=== PATIENT | female | born 1955 | race African-American/Black ===

== ENCOUNTER 2023-06-23 13:52 | Emergency (ER) | payer OTHER ==
[~2023-06-23] VITALS: Ht 170.2 cm; Wt 134.1 kg
[2023-06-23 14:25] VITALS: BP 186/100; PULSE 75; RESP 20; TEMP 97.5; O2SAT 98
== END 2023-06-23 16:06 | disposition home or self-care (01) ==
LOC: ER 13:53
DX: S40.021A Contusion of right upper arm, initial encounter (principal); S29.011A Strain of muscle and tendon of front wall of thorax, initial encounter; V49.88XA Car occupant (driver) (passenger) injured in other specified transport accidents, initial encounter; Y93.89 Activity, other specified; Y92.89 Other specified places as the place of occurrence of the external cause; Y99.8 Other external cause status
CPT/HCPCS: 71045; 73110; 99284

== ENCOUNTER 2024-08-19 12:15 | Inpatient (IN) | payer OTHER, MEDICARE ==
[~2024-08-19] VITALS: Ht 170.2 cm; Wt 104.5 kg
[2024-08-19 12:42] LABS: BASOPHILS # (AUTO) 0.1 X10'3 (0-0.2); BASOPHILS % (AUTO) 1.2 % (0-1); EOSINOPHILS # (AUTO) 0.1 X10'3 (0-0.9); HEMATOCRIT 40.4 % (35.0-45.0); HEMOGLOBIN 13.2 g/dl (12.0-16.0); LYMPHOCYTES # (AUTO) 1.8 X10'3 (1.1-4.8); LYMPHOCYTES % (AUTO) 34.1 % (21-51); MEAN CORPUSCULAR HEMOGLOBIN 26.5 PG (27.0-31.0); MEAN CORPUSCULAR HGB CONC 32.8 g/dL (33.0-36.5); MEAN CORPUSCULAR VOLUME 80.7 FL (78-98); MEAN PLATELET VOLUME 9.8 FL (7.4-10.4); MONOCYTES # (AUTO) 0.5 X10'3 (0-0.9); MONOCYTES % (AUTO) 9.7 % (2-12); NEUTROPHILS # (AUTO) 2.8 X10'3 (1.8-7.7); PLATELET COUNT 133 X10'3 (140-440); RED CELL DISTRIBUTION WIDTH 14.6 % (11.5-14.5); WHITE BLOOD COUNT 5.3 X10'3 (4.5-11.0)
[2024-08-19 13:06] LABS: ALANINE AMINOTRANSFERASE 94 U/L (12-78); ALBUMIN/GLOBULIN RATIO 0.9 (1.1-1.5); ALKALINE PHOSPHATASE 61 IU/L (46-116); ANION GAP 7 (8-16); ASPARTATE AMINO TRANSFERASE 51 U/L (10-37); BILIRUBIN,TOTAL 1.5 MG/DL (0.1-1.0); BLOOD UREA NITROGEN 7 MG/DL (7-18); BUN/CREATININE RATIO 7.6 (10.0-20.0); CALCIUM 8.9 MG/DL (8.5-10.1); CHLORIDE 103 MMOL/L (99-107); CREATININE 0.92 MG/DL (0.40-0.90); GLUCOSE 126 MG/DL (70-104); PRO BRAIN NATRIURETIC PEPTIDE < 30 PG/ML (0-125); SODIUM 139 MMOL/L (135-145); TOTAL CARBON DIOXIDE 28.8 MMOL/L (24-32); TOTAL PROTEIN 6.5 G/DL (6.4-8.2); eCRCL 58 ML/MIN; eGFR 74 ML/MIN
[2024-08-19 13:12] LABS: POTASSIUM 2.3 MMOL/L (3.5-5.1)
[2024-08-19] MEDS: proCHLORperazine 10 MG/2 ml inj IV STA (13:42)
[2024-08-19] MEDS ORDERED: magnesium sulf-water 4G/100mL 100 ML IV PRN (13:55)
[2024-08-19] MEDS ORDERED: potassium Cl 20 mEq SR tablet PO PRN (13:55)
[2024-08-19] MEDS ORDERED: ondansetron/PF 4mg/2ml inj IV PRN (13:55)
[2024-08-19] MEDS ORDERED: HYDROcodone/acetaminophen 5mg/325mg tablet PO PRN (13:55)
[2024-08-19] MEDS ORDERED: acetaminophen 325mg tablet PO PRN ×2 (13:55)
[2024-08-19] MEDS ORDERED: magnesium Cl slow-release 64mg tablet PO PRN (13:55)
[2024-08-19] MEDS ORDERED: HYDROcodone/acetaminophen 10/325mg tab PO PRN (13:55)
[2024-08-19] MEDS ORDERED: magnesium sulf-water 2g/50mL 50 ML IV PRN (13:55)
[2024-08-19] MEDS ORDERED: morphine 2 MG/ML inj. syringe IV PRN ×2 (13:55)
[2024-08-19 14:05] LABS: ETHANOL < 10 MG/DL (<10)
[2024-08-19] MEDS: normal saline 1000ml 1,000 ML IV SCH (14:19)
[2024-08-19] MEDS: normal saline 1000ml 1,000 ML IV STA (14:19)
[2024-08-19] MEDS: potassium Cl 40MEQ/1/2NS 520ml 520 ML IV PRN (14:24)
[2024-08-19 15:15] VITALS: BP 108/71; PULSE 78; RESP 16; TEMP 98.2; O2SAT 94
[2024-08-19 16:00] VITALS: RESP 18; O2SAT 97
[2024-08-19] MEDS ORDERED: nitroGLYCERIN 0.4mg SUBLingual tab SL PRN (16:05)
[2024-08-19 16:20] LABS: THYROID STIMULATING HORMONE 0.97 ulU/ml (0.34-4.50)
[2024-08-19] MEDS: pantoprazole 40mg Tablet.DR PO SCH (17:14)
[2024-08-19] MEDS ORDERED: HYDR25TA4 PO (17:33)
[2024-08-19] MEDS ORDERED: CARV25TA56 PO (17:33)
[2024-08-19] MEDS ORDERED: ATOR-2 PO (17:33)
[2024-08-19 18:00] VITALS: BP 110/65; PULSE 73; RESP 14; TEMP 97.6; O2SAT 94
[2024-08-19] MEDS: heparin, porcine 5000 units/ml vial SQ SCH (19:38)
[2024-08-19 20:00] VITALS: RESP 18; O2SAT 95
[2024-08-19 22:00] VITALS: BP 120/63; PULSE 69; RESP 18; TEMP 97.8; O2SAT 95
[2024-08-20] VITALS (8 sets, daily range): BP systolic 110–143; BP diastolic 65–75; PULSE 70–82; RESP 16–19; TEMP 97.2–98; O2SAT 96–100
[2024-08-20 09:34] LABS: BASOPHILS % (AUTO) 0.9 % (0-1); EOSINOPHILS # (AUTO) 0.2 X10'3 (0-0.9); EOSINOPHILS % (AUTO) 3.9 % (0-6); HEMATOCRIT 38.5 % (35.0-45.0); HEMOGLOBIN 12.7 g/dl (12.0-16.0); LYMPHOCYTES # (AUTO) 1.8 X10'3 (1.1-4.8); LYMPHOCYTES % (AUTO) 34.3 % (21-51); MEAN CORPUSCULAR HEMOGLOBIN 26.6 PG (27.0-31.0); MEAN CORPUSCULAR VOLUME 80.8 FL (78-98); MEAN PLATELET VOLUME 9.4 FL (7.4-10.4); MONOCYTES # (AUTO) 0.5 X10'3 (0-0.9); MONOCYTES % (AUTO) 9.4 % (2-12); NEUTROPHILS # (AUTO) 2.8 X10'3 (1.8-7.7); NEUTROPHILS % (AUTO) 51.5 % (42-75); PLATELET COUNT 110 X10'3 (140-440); RED BLOOD COUNT 4.76 X10'6 (4.20-5.60); RED CELL DISTRIBUTION WIDTH 14.9 % (11.5-14.5); WHITE BLOOD COUNT 5.3 X10'3 (4.5-11.0)
[2024-08-20 09:50] LABS: ALANINE AMINOTRANSFERASE 107 U/L (12-78); ALBUMIN 2.9 G/DL (3.4-5.0); ALBUMIN/GLOBULIN RATIO 0.9 (1.1-1.5); ALKALINE PHOSPHATASE 57 IU/L (46-116); ANION GAP 6 (8-16); ASPARTATE AMINO TRANSFERASE 58 U/L (10-37); BILIRUBIN,TOTAL 1.6 MG/DL (0.1-1.0); BLOOD UREA NITROGEN 5 MG/DL (7-18); CALCIUM 8.5 MG/DL (8.5-10.1); CHLORIDE 107 MMOL/L (99-107); CREATININE 0.83 MG/DL (0.40-0.90); GLUCOSE 81 MG/DL (70-104); POTASSIUM 3.1 MMOL/L (3.5-5.1); SODIUM 141 MMOL/L (135-145); TOTAL CARBON DIOXIDE 27.6 MMOL/L (24-32); TOTAL PROTEIN 6.3 G/DL (6.4-8.2); eCRCL 64 ML/MIN; eGFR 83 ML/MIN
[2024-08-20 09:52] LABS: CHOL/HDL RATIO 3.4 (0.00-4.99); CHOLESTEROL 123 MG/DL (0-200); HDL CHOLESTEROL 36 MG/DL (35-60); LDL CHOLESTEROL 72 MG/DL (50-100); TRIGLYCERIDES 45 MG/DL (20-135)
[2024-08-20 09:57] LABS: HEMOGLOBIN A1C 5.5 % (4.5-6.2)
[2024-08-20] MEDS: potassium Cl 20 mEq SR tablet PO PRN (11:40)
[2024-08-20] MEDS: atorvastatin 20mg tablet PO SCH (13:10)
[2024-08-20] MEDS: carVEDilol 12.5mg tablet PO SCH (13:11)
[2024-08-20] MEDS: HYDROchlorothiazide 25mg tablet PO SCH (13:11)
[2024-08-21 02:00] VITALS: BP 137/46; PULSE 94; RESP 18; TEMP 97; O2SAT 98
[2024-08-21 06:00] VITALS: BP 123/72; PULSE 75; RESP 19; TEMP 97.8; O2SAT 98
[2024-08-21 07:03] LABS: BASOPHILS # (AUTO) 0.1 X10'3 (0-0.2); BASOPHILS % (AUTO) 0.9 % (0-1); EOSINOPHILS # (AUTO) 0.2 X10'3 (0-0.9); EOSINOPHILS % (AUTO) 3.7 % (0-6); HEMATOCRIT 35.8 % (35.0-45.0); HEMOGLOBIN 11.8 g/dl (12.0-16.0); LYMPHOCYTES # (AUTO) 1.8 X10'3 (1.1-4.8); MEAN CORPUSCULAR HEMOGLOBIN 26.7 PG (27.0-31.0); MEAN CORPUSCULAR VOLUME 80.9 FL (78-98); MEAN PLATELET VOLUME 9.3 FL (7.4-10.4); MONOCYTES # (AUTO) 0.5 X10'3 (0-0.9); MONOCYTES % (AUTO) 8.5 % (2-12); NEUTROPHILS # (AUTO) 3.7 X10'3 (1.8-7.7); NEUTROPHILS % (AUTO) 58.9 % (42-75); PLATELET COUNT 101 X10'3 (140-440); RED BLOOD COUNT 4.42 X10'6 (4.20-5.60); RED CELL DISTRIBUTION WIDTH 15.2 % (11.5-14.5); WHITE BLOOD COUNT 6.3 X10'3 (4.5-11.0)
[2024-08-21 07:24] LABS: ALANINE AMINOTRANSFERASE 107 U/L (12-78); ALBUMIN 2.6 G/DL (3.4-5.0); ALBUMIN/GLOBULIN RATIO 0.8 (1.1-1.5); ALKALINE PHOSPHATASE 55 IU/L (46-116); ANION GAP 8 (8-16); ASPARTATE AMINO TRANSFERASE 64 U/L (10-37); BILIRUBIN,TOTAL 1.4 MG/DL (0.1-1.0); BLOOD UREA NITROGEN 4 MG/DL (7-18); BUN/CREATININE RATIO 4.9 (10.0-20.0); CALCIUM 8.5 MG/DL (8.5-10.1); CHLORIDE 108 MMOL/L (99-107); CREATININE 0.81 MG/DL (0.40-0.90); GLUCOSE 78 MG/DL (70-104); POTASSIUM 3.3 MMOL/L (3.5-5.1); SODIUM 143 MMOL/L (135-145); TOTAL CARBON DIOXIDE 27.1 MMOL/L (24-32); TOTAL PROTEIN 5.7 G/DL (6.4-8.2); eCRCL 66 ML/MIN; eGFR 85 ML/MIN
[2024-08-21] MEDS ORDERED: PANT40TA54 PO (09:34)
[2024-08-21] MEDS ORDERED: POTA-366 PO (09:40)
[2024-08-21] MEDS ORDERED: hyDRALAzine tablet PO (09:50)
[2024-08-21] MEDS: polyethylene glycol 3350 17gm powd pack PO SCH (09:58)
[2024-08-21 10:43] VITALS: RESP 16; O2SAT 98
[2024-08-21 11:00] VITALS: BP 145/78; PULSE 80; RESP 14; TEMP 97.5; O2SAT 98
[2024-08-21 11:02] VITALS: O2SAT 98
[2024-08-21] MEDS ORDERED: LISI5TAB22 PO (12:58)
[2024-08-21] MEDS ORDERED: hyDRALAzine 10mg tablet PO SCH (16:00)
== END 2024-08-21 13:08 | disposition home or self-care (01) | DRG 392 ==
LOC: ER 12:15 → ED HOLD 13:58 → PCU 3S 15:00
PROVIDERS: ADMIT Internal Medicine; ATTEND Internal Medicine
DX: K21.9 Gastro-esophageal reflux disease without esophagitis (principal); I20.1 Angina pectoris with documented spasm; E87.6 Hypokalemia; I10 Essential (primary) hypertension; E78.5 Hyperlipidemia, unspecified; R74.01 Elevation of levels of liver transaminase levels; E86.0 Dehydration; E88.09 Other disorders of plasma-protein metabolism, not elsewhere classified; E80.6 Other disorders of bilirubin metabolism; Z79.899 Other long term (current) drug therapy; Z90.710 Acquired absence of both cervix and uterus
CPT/HCPCS: 36415; 71045; 80053; 80061; 80320; 83036; 83880; 84443; 84484; 85025; 87081; 92508; 92616; 93005; 93306; 96361; 96374; 99285; G0378; J0780; J1644; J3480; J7030